=== PATIENT | male | born 1940 | race Caucasian/White ===

== ENCOUNTER 2016-12-03 10:00 | Day surgery (SDC) | payer MEDICARE ==
--- NOTE | ~2016-12-03 | EGD ---
EGD REPORT [facility] [address] [address] NAME: BERNY GLOVER : [birth year] STATUS : REG [facility]#: [id number] AGE: 76 ADM/REG DATE : 12/03/16 MR#: [id number] REPORT SERV DATE: 12/03/16 DICTATED BY: CASEY LOZA DATE: 12/03/16 REPORT STATUS : Draft TRANSCRIBED BY: [facility] DATE: 12/03/16 Endoscopy Center Patient Name: Berny Glover Date of : 1940 Attending MD: CASEY LOZA MD Procedure Date No Time: 12/03/2016 Procedure: Colonoscopy Indications: High risk colon cancer surveillance: Personal history of colonic polyps Referring MD: ESTEFANY SALAS Medicines: Propofol per Anesthesia Complications: No immediate complications. Procedure: Pre-Anesthesia Assessment: - ASA Grade Assessment: II - A patient with mild systemic disease. After I obtained informed consent, the scope was passed under direct vision. Throughout the procedure, the patient's blood pressure, pulse, and oxygen saturations were monitored continuously. The PCF [id number] was introduced through the anus and advanced to the terminal ileum. The colonoscopy was performed without difficulty. The patient tolerated the procedure well. The quality of the bowel preparation was excellent. Findings: Multiple medium-mouthed diverticula were found in the entire colon. There is no endoscopic evidence of polyps in the entire colon. The retroflexed view of the distal rectum and anal verge was normal and showed no anal or rectal abnormalities. Impression: - Moderate diverticulosis in the entire examined colon. Recommendation: - Return to previous diet today. - Repeat colonoscopy at appointment to be scheduled for surveillance. - The findings and recommendations were discussed with the patient and their family. - After the procedure, if you experience any pain in abdomen or chest,shortness of breath,fever,chills,blood in stool,rectal bleeding,vomiting of any material,nausea,black stools or weakness or dizziness, GO TO THE EMERGENCY IMMEDIATELY!!!!!!!!! - The findings and recommendations were discussed with the patient and their family. - After the procedure, if you experience any pain in EGD REPORT [address] [address] NAME: BERNY GLOVER : 36 STATUS : REG [facility] [place] [id number] AGE: 76 ADM/REG DATE : 12/03/16 MR#: [id number] REPORT SERV DATE: 12/03/16 DICTATED BY: CASEY LOZA DATE: 12/03/16 REPORT STATUS : Draft TRANSCRIBED BY: [employer] DATE: 12/03/16 abdomen or chest,shortness of breath,fever,chills,blood in stool,rectal bleeding,vomiting of any material,nausea,black stools or weakness or dizziness, GO TO THE EMERGENCY IMMEDIATELY!!!!!!!!! Procedure Code(s): --- Professional --- 55389, Colonoscopy, flexible, proximal to splenic flexure; diagnostic, with or without collection of specimen(s) by brushing or washing, with or without colon decompression (separate procedure) Diagnosis Code(s): --- Professional --- K57.30, Diverticulosis of large intestine without perforation or abscess without bleeding Z86.010, Personal history of colonic polyps CPT copyright 2013 [employer]. All rights reserved. The codes documented in this report are preliminary and upon programmable logic controller assembler review may be revised to meet current compliance requirements. Casey Loza MD CASEY LOZA MD 12/03/2016 12:53 PM This report has been signed electronically. Number of Addenda: 0 Note Initiated On: 12/03/2016 12:25 PM Scope Withdrawal Time 0 hours 10 minutes 10 seconds [id number] [place] [id number]
[~2016-12-03 10:00] MED LIST: ASAB PO; HEMOCYTE324 MG PO; MOBIC15 MG PO; MULTIPLE VIT PO; NORV5 PO
[2017-04-28] MEDS ORDERED: PEPCID (14:33)
== END 2016-12-03 23:59 | disposition home or self-care (01) ==
LOC: DMU 10:00
PROVIDERS: Internal Medicine Gastroenterology
PROC: 0DJD8ZZ Inspection of Lower Intestinal Tract, Via Natural or Artificial Opening Endoscopic (ICD-10-PCS; principal; 2016-12-03 12:30)
DX: Z12.11 Encounter for screening for malignant neoplasm of colon (principal); K57.30 Diverticulosis of large intestine without perforation or abscess without bleeding; M19.90 Unspecified osteoarthritis, unspecified site; D64.9 Anemia, unspecified; Z88.2 Allergy status to sulfonamides; Z86.010 Personal history of colon polyps; Z79.82 Long term (current) use of aspirin; Z79.899 Other long term (current) drug therapy; Z96.653 Presence of artificial knee joint, bilateral; Z98.890 Other specified postprocedural states

== ENCOUNTER 2017-04-29 09:15 | Day surgery (SDC) | payer MEDICARE ==
[~2017-04-29] VITALS: Ht 182.9 cm; Wt 104.3 kg
--- NOTE | ~2017-04-29 | EGD ---
EGD REPORT [facility] [address] [address] NAME: BERNY GLOVER : [birth year] STATUS : REG [facility]#: [id number] AGE: 77 ADM/REG DATE : 04/29/17 MR#: [id number] REPORT SERV DATE: 05/01/17 DICTATED BY: CASEY LOZA DATE: 05/01/17 REPORT STATUS : Draft TRANSCRIBED BY: [employer] [facility] DATE: 05/01/17 Endoscopy Center Patient Name: Berny Glover Date of : 1940 Attending MD: CASEY LOZA MD Procedure Date No Time: 04/29/2017 Procedure: Upper GI endoscopy Indications: Heartburn Referring MD: ESTEFANY SALAS Medicines: Propofol per Anesthesia Complications: No immediate complications. Procedure: Pre-Anesthesia Assessment: - ASA Grade Assessment: III - A patient with severe systemic disease. After obtaining informed consent, the endoscope was passed under direct vision. Throughout the procedure, the patient's blood pressure, pulse, and oxygen saturations were monitored continuously. The GIF H190 [id number] was introduced through the mouth, and advanced to the third part of duodenum. The upper GI endoscopy was accomplished without difficulty. The patient tolerated the procedure well. Findings: A small hiatus hernia was present. Normal mucosa was found in the entire esophagus. Normal mucosa was found in the entire examined stomach. Biopsies were taken with a cold forceps for histology. The examined duodenum was normal. Impression: - Hiatus hernia. - Normal mucosa was found in the entire esophagus. - Normal mucosa was found in the entire stomach. Biopsied. - Normal examined duodenum. Recommendation: - The patient will be observed post-procedure, until all discharge criteria are met. - Return to previous diet today. - Await pathology results. - The findings and recommendations were discussed with the patient and their family. - After the procedure, if you experience any pain in abdomen or chest,shortness of breath,fever,chills,blood in stool,rectal bleeding,vomiting of any EGD REPORT [facility] [address] [place]. [address] NAME: BERNY GLOVER : [birth year] STATUS : REG [facility]#: [id number] AGE: 77 ADM/REG DATE : 04/29/17 MR#: [id number] REPORT SERV DATE: 05/01/17 DICTATED BY: CASEY LOZA. DATE: 05/01/17 REPORT STATUS : Draft TRANSCRIBED BY: [employer] DATE: 05/01/17 material,nausea,black stools or weakness or dizziness, GO TO THE EMERGENCY IMMEDIATELY!!!!!!!!! Procedure Code(s): --- Professional --- 36983, Esophagogastroduodenoscopy, flexible, transoral; with biopsy, single or multiple Diagnosis Code(s): --- Professional --- K44.9, Diaphragmatic hernia without obstruction or gangrene R12, Heartburn CPT copyright 2013 [employer] [place] [employer]. All rights reserved. The codes documented in this report are preliminary and upon casino gaming inspector review may be revised to meet current compliance requirements. Casey Loza MD CASEY LOZA MD 04/29/2017 11:02 AM This report has been signed electronically. Number of Addenda: 0 Note Initiated On: 04/29/2017 10:23 AM Scope Withdrawal Time 0 hours 0 minutes 0 seconds [address] [place] [address]
[~2017-04-29 09:15] MED LIST changes: +PEPCID
== END 2017-04-29 23:59 | disposition home health service (06) ==
LOC: DMU 09:15
PROVIDERS: Internal Medicine Gastroenterology
PROC: 0DB68ZX Excision of Stomach, Via Natural or Artificial Opening Endoscopic, Diagnostic (ICD-10-PCS; principal; 2017-04-29 10:00)
DX: K44.9 Diaphragmatic hernia without obstruction or gangrene (principal); K21.9 Gastro-esophageal reflux disease without esophagitis; I10 Essential (primary) hypertension; Z88.2 Allergy status to sulfonamides; Z88.8 Allergy status to other drugs, medicaments and biological substances; Z79.82 Long term (current) use of aspirin; Z79.899 Other long term (current) drug therapy; Z87.891 Personal history of nicotine dependence; Z98.890 Other specified postprocedural states
CPT/HCPCS: 88305